=== PATIENT | male | born 1990 | race Caucasian/White ===

== ENCOUNTER 2021-02-17 20:02 | Emergency (ER) | payer OTHER ==
[2021-02-17 20:28] VITALS: TEMP 98.6
[2021-02-17 21:39] VITALS: BP 131/68; PULSE 58
== END 2021-02-17 21:39 | disposition home or self-care (01) ==
LOC: COL.ER 20:02
DX: S61.211A Laceration without foreign body of left index finger without damage to nail, initial encounter (principal); W26.8XXA Contact with other sharp object(s), not elsewhere classified, initial encounter

== ENCOUNTER → 2021-02-24 | Outpatient (CLI) | payer OTHER ==
[2021-02-24 17:51] VITALS: BP 135/66; PULSE 92
== END ==
LOC: COL.ER 17:37 → EDSTATUS 17:39
DX: Z48.02 Encounter for removal of sutures (principal)